=== PATIENT | female | born 1970 | race Caucasian/White ===

== ENCOUNTER 2018-01-17 15:00 | Emergency (ER) | payer BC ==
[~2018-01-17] VITALS: Ht 162.6 cm; Wt 86.1 kg
[~2018-01-17 15:00] MED LIST: ALLEGRA180 MG PO; BENADRYL50 MG PO; BENTYL20 MG PO; FLONASE16 G1 BOTH NARES; PEPCID20 MG PO; PREDNISONE20 MG PO
[2018-01-17 15:55] LABS: HEMATOCRIT 39.7 % (36.0-46.0); HEMOGLOBIN 13.5 G/DL (11.9-15.5); MCH 30.8 PG (29.0-34.0); MCV 90.6 FL (83-99); PLATELET COUNT 236 K/uL (156-360); RBC DIS.WIDTH-CV 12.5 % (11.8-14.6); RBC DIS.WIDTH-SD 41.3 % (39-53); RED BLOOD COUNT 4.38 M/uL (3.80-5.20); WHITE BLOOD COUNT 6.5 K/uL (4.1-10.2)
[2018-01-17 16:04] LABS: CHLORIDE 107 mEq/L (99-109); POTASSIUM 4.3 mEq/L (3.7-5.4); SODIUM 142 mEq/L (136-147)
[2018-01-17 16:05] LABS: GLUCOSE 100 mg/dL (70-99)
[2018-01-17 16:09] LABS: CREATININE 0.8 mg/dL (0.6-1.3); GFR ESTIMATE (CALCULATED) > 59 mL/min/
[2018-01-17 16:10] LABS: UREA NITROGEN (BUN) 13 mg/dL (9-23)
[2018-01-17 16:17] LABS: QUANTITATIVE HCG < 4.0 MIU/ML
[2018-01-17] MEDS ORDERED: TEGRETOL-XR,CA200 MG PO (17:37)
[2018-01-17 17:45] VITALS: BP 109/76
== END 2018-01-17 17:46 | disposition home or self-care (01) ==
LOC: EME 15:00
PROVIDERS: Physician Assistant
DX: R25.3 Fasciculation (principal); E03.9 Hypothyroidism, unspecified; K21.9 Gastro-esophageal reflux disease without esophagitis; G43.909 Migraine, unspecified, not intractable, without status migrainosus; I34.1 Nonrheumatic mitral (valve) prolapse; F41.9 Anxiety disorder, unspecified; Z87.891 Personal history of nicotine dependence
CPT/HCPCS: 70450; 80048; 84702; 85027; 99281; 99284